=== PATIENT | female | born 1945 | race African-American/Black ===

== ENCOUNTER 2017-05-31 11:42 | Day surgery (SDC) | payer OTHER ==
[2017-05-31 12:50] VITALS: BMI 39.6
[2017-05-31] MEDS ORDERED: PROPOFOL 20 ML ONE (12:50)
[2017-05-31 13:53] VITALS: TEMP 98.6
[2017-05-31 14:38] VITALS: BP 140/79; PULSE 54
--- NOTE | 2017-06-02 13:29 | PATH ---
Surgical Pathology Report Patient Name: LUIS MANUEL BENAVIDES [facility] Rec. #: [id number] /Age/Gender: 1945 (Age: 72) / F Account: [id number] Location: [facility]-ENDOSCOPY Taken: 05/31/2017 Received: 06/01/2017 Reported: 06/02/2017 Physicians: Jaya Jacobs M.D. Specimen(s) Received POLYP FROM TRANSVERSE COLON Clinical History Screening Colon polyp, hemorrhoid Final Diagnosis COLON, TRANSVERSE, POLYP, POLYPECTOMY: SERRATED ADENOMA. Electronically Signed Kashmir Dove M.D. Gross Description Received in formalin, labeled "polyp from transverse colon" are 2 infante, irregular portions of soft tissue measuring 0.2 and 0.3 cm in greatest dimension. The specimens are submitted in toto in one cassette. 06/01/201706/01/2017
== END 2017-05-31 14:38 | disposition home or self-care (01) ==
LOC: JASU-SURG 11:42 → JASU-ENDO 11:42
PROVIDERS: ATTEND Internal Medicine Gastroenterology
PROC: 0DBL8ZX Excision of Transverse Colon, Via Natural or Artificial Opening Endoscopic, Diagnostic (ICD-10-PCS; principal; 2017-05-31 12:30)
DX: Z51.11 Encounter for antineoplastic chemotherapy (principal); D12.3 Benign neoplasm of transverse colon; K63.89 Other specified diseases of intestine; K64.8 Other hemorrhoids
CPT/HCPCS: 88305-TC